=== PATIENT | male | born 2000 | race Caucasian/White ===

== ENCOUNTER 2020-11-15 17:45 | Emergency (ER) | payer OTHER ==
[~2020-11-15] VITALS: Ht 190.5 cm; Wt 89.0 kg
[2020-11-15 17:56] VITALS: BP 135/91
[2020-11-15] MEDS ORDERED: ketorolac tromethamine 15mg/ml inj. IM ONE (19:35)
[2020-11-15] MEDS ORDERED: CYCL-1 PO (19:37)
[2020-11-15] MEDS ORDERED: IBUP-1984 PO (19:37)
== END 2020-11-15 20:00 | disposition home or self-care (01) ==
LOC: ER 17:46
DX: M77.9 Enthesopathy, unspecified (principal); R07.89 Other chest pain; M79.602 Pain in left arm
CPT/HCPCS: 96372; 99283; J1885